=== PATIENT | female | born 2000 | race Caucasian/White ===

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

== ENCOUNTER 2022-10-24 12:03 | Outpatient (CLI) | payer BC ==
[2022-10-24] MEDS: LACTATED RINGERS 1,000 ML IV SCH ×2 (12:50→16:03)
[2022-10-24 13:09] VITALS: BP 109/51; PULSE 65; RESP 14; TEMP 97.3
--- NOTE | 2022-10-24 14:22 | US ---
EXAMINATION TYPE: US OB >= 14 wk fetus DATE OF EXAM: 10/24/2022 COMPARISON: None CLINICAL HISTORY: fallPatient fell TECHNIQUE: Transabdominal (TA) GESTATIONAL AGE / DATING Physician Established: (25 weeks/0 days) EDC: 02/06/2023 Dates by LMP: (25 weeks/0 days) EDC: 02/06/2023 Dates by First Scan: No previous this is first scan Dates by Current Scan: (25 weeks/3 days) EDC: 02/03/2023 SURVEY IUP: Single PLACENTA: Posterior PREVIA: No Previa ADEBAYO: 17 cm Normal CERVICAL LENGTH (transabdominal: norm > 3.0cm): 3.4 cm BIOMETRY PRESENTATION: Vertex LIE: Longitudinal BPD: 6.6 cm 26 weeks / 6 days HC: 22.61 cm 24 weeks / 4 days AC: 20.32 cm 24 weeks / 6 days FL: 4.92 cm 26 weeks / 4 days ESTIMATED WEIGHT IN GRAMS: grams ESTIMATED WEIGHT IN LBS/OZ: 1 lbs. 13 oz. WEIGHT PERCENTAGE BASED ON ESTABLISHED DATES: 67.3% HC/AC: 1.1 cm Normal FL/AC: 24.22 Normal HEART RATE: 143 bpm RHYTHM: Normal IMPRESSION: Single live intrauterine gestation with ultrasound age 25 weeks 3 days which is concordan t with dates by last menstrual period. Additional information as described above.
--- NOTE | 2022-10-24 16:58 | P.HPOB ---
History of Present Illness H&P Date: 10/24/22 Chief Complaint: 25-0/7 weeks, random decelerations after a fall the patient is a 22-year-old 1 para 0 admitted at 25-0/7 weeks as established by last menstrual period and confirmed by 19 week ultrasound. She called the office today after tripping coming out of her house and feels that she fell and landed only on palms and knees as both her scuffed and a little sore and did not have any direct abdominal trauma but she cannot be [place] certain. As a result, she was counseled to present to triage for monitoring of the fetus. She was placed on the monitor at which time she had at least 2 random relatively deep variable decelerations lasting for close to a minute and falling from approximately 150s to around 100. Aside from these decelerations, there was excellent variability for 25 week fetus and the patient denied any ongoing pain, cramping and no contractions were traced. She has no bleeding or any other vaginal concerns. Her has been entirely uncomplicated to this point. Given the random nature of having 3-5 decelerations as described above over the course of 3-4 hours of monitoring, the decision was made that the patient should have extended monitoring but in a tertiary care institution where delivery would be safer for the infant. Obstetrical history: 1 para 0 with current statistics listed in history of present illness. EDC of 02/06/2023 was established by last menstrual period and confirmed by 19 week ultrasound. Laboratory workup demonstrates a blood type of O+ with a negative antibody screen. Rubella status is immune. Remainder of the laboratory workup was within normal limits. Early 1 hour Glucola was normal. Second trimester Glucola has not yet been performed nor has group B strep undetermined. Gynecologic history: Unremarkable with no history of any infections to include STDs. Review of Systems review of systems is confined to history of present illness. Past Medical History Past Medical History: No Reported History History of Any Multi-Drug Resistant Organisms: None Reported Past Surgical History: No Surgical Hx Reported Smoking Status: Never smoker Medications and Allergies Allergies Allergy/AdvReac Type Severity Reaction Status Date / Time No Known Allergies Allergy Verified 09/13/17 18:01 Exam Vital Signs Temp Pulse Resp BP 10/24/22 13:02 97.3 F L 65 14 109/51 Intake and Output 10/24/22 10/24/2210/24/22 06:59 14:59 22:59 Other: Weight 89.358 kg in general, this is a well-developed, mild to moderately obese white female in no acute distress. Her heart has a regular rhythm and rate without murmur. Her lungs are clear to auscultation bilaterally in all ewing. Her abdomen is gravid, nondistended, has normal active bowel sounds, soft, nontender, and without any palpable masses aside from uterine fundus. Her extremities are without any cyanosis, clubbing, or edema and are nontender to palpation bilaterally. Digital cervical examination is deferred. Assessment and Plan (1) 25 weeks gestation of Current Visit: Yes Status: Acute Code(s): Z3A.25 - 25 WEEKS GESTATION OF SNOMED Code(s): 07156367 (2) Fall (on) (from) other stairs and steps, initial encounter Current Visit: Yes Status: Acute Code(s): W10.9XXA - FALL (ON) (FROM) UNSPECIFIED STAIRS AND STEPS, INIT ENCNTR SNOMED Code(s): 658702304 (3) Variable heart rate decelerations, antepartum Current Visit: Yes Status: Acute Code(s): O36.8390 - MATERN CARE FOR ABNLT FETL HRT RATE OR RHYM, UNSP TRI, UNSP SNOMED Code(s): 898763556 Plan: in the absence of the decelerations, the heart tracing would be category 1. The presence of the decelerations makes category 2. Given the random nature of the decelerations and the fact that they have been somewhat repetitive over the last 4 hours of monitoring, the decision was made that the patient needs to be observed for a longer period of time and that the safest place for that to take place is in a tertiary care institution. As a result, I have spoken with the attending physician at [facility] in [place] who has agreed to the transfer. They will make further decisions as regards the need for steroids and length of observation.
== END 2022-10-24 18:17 ==
LOC: FBPOP 12:03
PROVIDERS: ATTEND Obstetrics & Gynecology
DX: O36.8930 Maternal care for other specified fetal problems, third trimester, not applicable or unspecified (principal); Z3A.25 25 weeks gestation of pregnancy; W10.9XXA Fall (on) (from) unspecified stairs and steps, initial encounter; F17.200 Nicotine dependence, unspecified, uncomplicated
CPT/HCPCS: 76805; 96360; 96361; 99214

== ENCOUNTER → 2022-11-11 | Outpatient (CLI) | payer BC | END | disposition home or self-care (01) | LOC: LABWHC1 11:20 | PROVIDERS: ATTEND Obstetrics & Gynecology | DX: Z36.9 Encounter for antenatal screening, unspecified (principal) | CPT/HCPCS: 36415; 82950 ==

== ENCOUNTER 2023-01-31 18:49 | Inpatient (IN) | payer BC ==
[2023-01-31] MEDS ORDERED: LIDOCAINE 0.5% (PF) 5 MG/ML (50 ML SDV) SQ PRN (19:31)
[2023-01-31] MEDS ORDERED: miSOPROStoL 200 MCG TAB PO PRN (19:31)
[2023-01-31] MEDS ORDERED: OXYTOCIN 10 UNIT/ML 1 ML VIAL IM PRN (19:31)
[2023-01-31] MEDS ORDERED: METHYLERGONOVINE 0.2 MG/ML 1 ML AMP IM PRN (19:31)
[2023-01-31] MEDS ORDERED: TERBUTALINE 1 MG/ML VIAL SQ PRN (19:31)
[2023-01-31] MEDS ORDERED: TRANEXAMIC ACID IN NACL,ISO-OS 1,000 MG in EMPTY BAG 1 BAG IV PRN (19:31)
[2023-01-31] MEDS ORDERED: CARBOPROST TROMETHAMINE 250 MCG/ML 1 ML AMP IM PRN (19:31)
[2023-01-31] MEDS ORDERED: OXYTOCIN 30 UNITS/500 ML NS 30 UNIT in SALINE 1 500ML.BAG IV SCH ×2 (19:45→23:45)
[2023-01-31] MEDS: LACTATED RINGERS 1,000 ML IV SCH ×2 (19:45→22:56)
[2023-01-31 20:32] LABS: Basophils % (A) 1 %; Eosinophils # (A) 0.2 k/uL (0-0.7); Eosinophils % (A) 2 %; HCT 42.7 % (34.0-46.0); HGB 14.6 gm/dL (11.4-16.0); Lymphocytes # (A) 1.8 k/uL (1.0-4.8); Lymphocytes % (A) 23 %; MCH 30.9 pg (25.0-35.0); MCHC 34.3 g/dL (31.0-37.0); MCV 90.3 fL (80.0-100.0); Mean Platelet Volume 9.6; Monocytes # (A) 0.4 k/uL (0-1.0); Monocytes % (A) 5 %; Neutrophils # (A) 5.3 k/uL (1.3-7.7); Neutrophils % (A) 67 %; Platelet Count 144 k/uL (150-450); RBC 4.73 m/uL (3.80-5.40); RDW 13.2 % (11.5-15.5); WBC 7.9 k/uL (3.8-10.6)
[2023-01-31] MEDS ORDERED: BUTORPHANOL 1 MG/ML 1 ML VIAL IV PRN (20:54)
--- NOTE | 2023-01-31 20:59 | P.HPOB ---
History of Present Illness H&P Date: 01/31/23 Chief Complaint: 39 and one sevenths weeks, spontaneous rupture of membranes, labor the patient is a 22-year-old 1 para 0 admitted at 39 and one sevenths weeks as established by last menstrual period and confirmed by 19 week ultrasound. She is admitted in early active labor having had spontaneous rupture of membranes for clear fluid. On admission, all signs reassuring with a category 1 heart rate tracing. Her has been uncomplicated and group B strep status is negative. Obstetrical history: 1 para 0 with current statistics listed in history present illness. EDC of 02/06/2023 was established by last menstrual period and confirmed by 19 week ultrasound. Laboratory workup demonstrates a blood type of O+ with a negative antibody screen. Rubella status is immune. Remainder of the laboratory workups were within normal limits. Early Glucola and second trimester Glucola were both normal. Group E strep status is negativ e. Gynecologic history: Unremarkable with no history of any infections to include STDs. Review of Systems review of systems is confined to history of present illness. Past Medical History Past Medical History: No Reported History History of Any Multi-Drug Resistant Organisms: None Reported Past Surgical History: No Surgical Hx Reported Smoking Status: Former smoker Medications and Allergies Home Medications Medication Instructions Recorded Confirmed Type Vit No.179/Iron/Folic 1 each PO DAILY 01/31/23 01/31/23 History [ Tablet] Allergies Allergy/AdvReac Type Severity Reaction Status Date / Time No Known Allergies Allergy Verified 09/13/17 18:01 Exam Vital Signs Temp Pulse Resp BP Pulse Ox 01/31/23 19:14 98 F 72 16 133/72 99 Intake and Output 01/31/23 01/31/23 01/31/23 06:59 14:59 22:59 Other: Weight 104.326 kg in general, this is a well-developed well-nourished white female in discomfort as she is in labor. Her heart has a regular rhythm and rate without murmur. Her lungs are clear to auscultation bilaterally in all ewing. Her abdomen is gravid, nondistended, has normal active bowel sounds, is soft, nontender, and without any palpable masses aside from the uterine fundus. Her extremities are without any cyanosis, clubbing, or significant edema. Digital cervical examination at this time demonstrates her cervix to be 57 m dilated, 100% effaced, the vertex in presentation at -2 station. Spontaneous rupture of membranes has been confirmed. Fluid is clear. Results Result Diagrams: 01/31/23 19:33 Abnormal Lab Results - Last 24 Hours (Table) 01/31/23 Range/Units 19:33 Plt Count 144 L (150-450) k/uL Assessment and Plan (1) Spontaneous rupture of amniotic membranes Current Visit: Yes Status: Acute Code(s): FXX2125 - SNOMED Code(s): 516613773 (2) Active labor at term Current Visit: Yes Status: Acute Code(s): VKY3341 - SNOMED Code(s): 01207837 Plan: the patient is admitted for active management of labor. She will have close maternal and surveillance and expectant management will be practiced. She is a good candidate for either IV, epidural, or nitrous analgesia, whichever she may choose.
[2023-01-31] MEDS ORDERED: diphenhydrAMINE 50 MG CAP PO PRN (23:59)
[2023-01-31] MEDS ORDERED: ZOLPIDEM 5 MG TAB PO PRN (23:59)
[2023-01-31] MEDS ORDERED: BENZOCAINE/MENTHOL SPRAY 1 GM/SPRAY AEROSOL TOPICAL PRN (23:59)
[2023-01-31] MEDS ORDERED: HYDROcodone/APAP 7.5-325MG 1 EACH TAB PO PRN (23:59)
[2023-01-31] MEDS ORDERED: diphenhydrAMINE 25 MG CAP PO PRN (23:59)
[2023-01-31] MEDS ORDERED: diphenhydrAMINE 50 MG/ML 1 ML VIAL IVP PRN ×2 (23:59)
[2023-01-31] MEDS ORDERED: LANOLIN CREAM 5 GM TUBE TOPICAL PRN (23:59)
[2023-01-31] MEDS ORDERED: ACETAMINOPHEN TAB 325 MG TAB PO PRN (23:59)
[2023-01-31] MEDS ORDERED: HYDROCORTISONE 2.5% RECTAL CREAM 30 GM TUBE RECTAL PRN (23:59)
[2023-01-31] MEDS ORDERED: SIMETHICONE 80 MG CHEWABLE PO PRN (23:59)
[2023-01-31] MEDS ORDERED: HYDROcodone/APAP 5-325MG 1 EACH TAB PO PRN (23:59)
--- NOTE | 2023-02-01 00:03 | P.PROBDLV ---
Vaginal Delivery Note - . Vaginal Delivery Note: the patient is a 22-year-old 1 para 0 admitted at 39 and one sevenths weeks by good dating parameters perches admitted in early active labor with spontaneous rupture of membranes for clear fluid and all signs reassuring, category 1 heart rate tracing. Her has been entirely uncomplicated and group B strep status is negative. On labor and delivery, she was nanette regular and making steady progress on her own. She, in fact, progressed quickly through the active phase of labor to complete and +2 station. She pushed over the course of approximately 10-15 minutes to a normal spontaneous vaginal delivery of a viable 6 lbs. 10 oz. baby boy with Apgars of 8 at 1 minute and 9 at 5 minutes delivered in the right occiput anterior position. There was a tight nuchal cord 1 which was reduced following delivery of the . The placenta was delivered spontaneously, intact, and grossly normal with a grossly normal three-vessel cord inserted approximate 3 cm from margin of the placenta. There was a small first-degree midline perineal laceration repaired with a single [id number] stitch of 3-0 chromic catgut. Estimated blood loss for the case was approximately 250 mL. There were no complications. All sponge, instrument, needle counts were correct. Both mother and infant are resting comfortably in recovery.
[2023-02-01] MEDS: IBUPROFEN 600 MG TAB PO PRN ×2 (08:31→17:36)
[2023-02-01] MEDS: SENNOSIDES-DOCUSATE SODIUM 1 EACH TAB PO SCH ×2 (08:32→19:34)
--- NOTE | 2023-02-01 11:09 | P.PNOBGVD ---
Subjective - Subjective Patient reports: Reports appetite normal, Reports voiding normally, Reports pain well controlled, Reports ambulating normally : doing well Objective - Latest Vital Signs Latest vital signs: Vital Signs Temp Pulse Resp BP Pulse Ox 02/01/23 08:00 98.3 F 69 16 131/76 02/01/23 04:00 98.6 F 85 16 148/72 98 02/01/23 02:00 96.7 F L 81 16 130/58 97 02/01/23 01:30 87 16 129/60 98 02/01/23 01:00 87 16 128/62 100 02/01/23 00:45 91 16 136/80 100 02/01/23 00:30 97.1 F L 91 16 126/60 100 02/01/23 00:15 90 16 131/64 100 02/01/23 00:00 98.4 F 90 16 155/69 100 01/31/23 19:14 98 F 72 16 133/72 99 Intake and Output 01/31/23 02/01/23 02/01/23 22:59 06:59 14:59 Intake Total 211.533 Output Total 445 Balance -233.467 Intake: Intake, IV Titration 211.533 Amount Oxytocin 30 Units/500 ml 211.533 Ns 30 unit In Saline 1 500ml.bag @ Per Protocol IV .Q0M [facility] Rx#:[id number] Output: Estimated Blood Loss 250 Output, Quantitative 195 Blood Loss Other: # Voids 2 Weight 104.326 kg - Exam Extremities: Present: normal Abdomen: Present: normal appearance, soft Uterus: Present: normal, firm (uterine fundus is tonic and nontender around the umbilicus.) - Labs Labs: Abnormal Lab Results - Last 24 Hours (Table) 01/31/23 Range/Units 19:33 Plt Count 144 L (150-450) k/uL Assessment and Plan (1) Spontaneous rupture of amniotic membranes Current Visit: Yes Status: Acute Code(s): LVN5266 - SNOMED Code(s): 781236442 (2) Active labor at term Current Visit: Yes Status: Acute Code(s): HOJ1879 - SNOMED Code(s): 97840561 (3) Normal spontaneous vaginal delivery Current Visit: Yes Status: Acute Code(s): O80 - ENCOUNTER FOR FULL-TERM UNCOMPLICATED DELIVERY SNOMED Code(s): 22162511 Plan: continue routine care. I would anticipate discharge home tomorrow pending no complications.
--- NOTE | 2023-02-01 12:34 | P.MSEPDOC ---
Presenting Problems - Arrival Data Date of Arrival on Unit: 01/31/23 Time of Arrival on Unit: 18:49 Mode of Transport: Ambulatory - Complaint OB-Reason for Admission/Chief Complaint: Rule Out SROM Medical History - Information : 1 Para: 0 Term: 0 : 0 Abortions: Spontaneous or Elective: 0 Number of Living Children: 0 - Gestational Age Gestational Age by DIRK (wks/days): 39 Weeks and 1 Days - History Comment: Quit vaping about 2 months ago Review of Systems - Review of Systems Constitutional: No problems Breast: No problems ENT: No problems Cardiovascular: No problems Respiratory: No problems Gastrointestinal: No problems Genitourinary: No problems Musculoskeletal: No problems Neurological: No problems Skin: No problems Vital Signs - Temperature Temperature: 98.3 F Temperature Source: Oral - Pulse Pulse Oximetery Pulse Rate: 69 Pulse Assessment Method: Automatic Cuff - Respirations Respiratory Rate: 16 Oxygen Delivery Method: Room Air - Blood Pressure Right Arm Blood Pressure: 131/76 Blood Pressure Mean: 94 Blood Pressure Source: Automatic Cuff Medical Screen Scoring - Cervical Exam Dilation (cm): 4 Effacement (%): 90 Station: -1 Membranes: Ruptured - Assessment - Baby A Heart Rate - NICHD Category: Category I (Normal) NST: Reactive Physician Notification - Physician Notified Physician Notified Date: 01/31/23 Physician Notified Time: 19:20 Physician: Nelson Hansen Order Received: Yes (Admission) Maternal Triage Index - Non-Urgent/Priority 4 Non-Urgent Priority 4: Yes Criteria Met for Priority 4: SROM, labor, admission Disposition - Disposition OB Disposition: Admit I agree with the RN Medical Screening Exam: Yes Case reviewed; plan agreed upon as documented in EMR&OBIX.: Yes Diagnosis: ENCOUNTER FOR FULL-TERM UNCOMPLICATED DELIVERY
[2023-02-01] MEDS: LACTATED RINGERS 1,000 ML IV SCH ×2 (21:16→21:17)
[2023-02-02] MEDS: IBUPROFEN 600 MG TAB PO PRN ×2 (00:03→08:30)
[2023-02-02] MEDS: LACTATED RINGERS 1,000 ML IV SCH (04:15)
[2023-02-02 05:27] LABS: Basophils % (A) 0 %; Eosinophils # (A) 0.2 k/uL (0-0.7); Eosinophils % (A) 3 %; HCT 35.6 % (34.0-46.0); HGB 12.2 gm/dL (11.4-16.0); Lymphocytes # (A) 1.9 k/uL (1.0-4.8); Lymphocytes % (A) 30 %; MCHC 34.1 g/dL (31.0-37.0); MCV 90.7 fL (80.0-100.0); Mean Platelet Volume 8.5; Monocytes # (A) 0.3 k/uL (0-1.0); Monocytes % (A) 5 %; Neutrophils % (A) 61 %; Platelet Count 130 k/uL (150-450); RBC 3.92 m/uL (3.80-5.40); RDW 13.3 % (11.5-15.5); WBC 6.6 k/uL (3.8-10.6)
[2023-02-02 08:26] VITALS: BP 107/71; PULSE 76; RESP 14; TEMP 98.1
[2023-02-02] MEDS: SENNOSIDES-DOCUSATE SODIUM 1 EACH TAB PO SCH (08:30)
--- NOTE | 2023-02-02 11:07 | P.DS ---
Providers Date of admission: 01/31/23 19:33 Expected date of discharge: 02/02/23 Attending physician: Nelson Hansen Primary care physician: Stated None - Discharge Diagnosis(es) (1) Spontaneous rupture of amniotic membranes Current Visit: Yes Status: Acute (2) Active labor at term Current Visit: Yes Status: Acute (3) Normal spontaneous vaginal delivery Current Visit: Yes Status: Acute Hospital Course: the patient is a 22-year-old 1 para 0 admitted at 39 and one sevenths weeks by good dating parameters. She is admitted in early active labor with all signs reassuring. She had spontaneous rupture of membranes demonstrating clear fluid. On admission, all signs reassuring with a category 1 heart rate tracing. Her was uncomplicated and group B strep status is negative. On labor and delivery, she made fairly rapid progress through the active phase of labor to complete and then pushed to a normal spontaneous vaginal delivery of a viable 6 lbs. 10 oz. baby boy with Apgars of 8 at 1 minute and 9 at 5 minutes. Her course was unremarkable vital signs remained stable and her temperature was afebrile throughout. She was deemed stable for discharge on day #2 was discharged home to follow-up in the office in 6 weeks' time routinely. Discharge instructions included calling for any significantly increased bleeding or foul-smelling lochia, significantly increased fever abdominal pain, perineal complaints, breast complaints, or anything else that concerned her. She was additionally instructed to have nothing in the vagina for at least 6 weeks time to include intercourse. She understood her instructions and agrees to follow up as noted above. Discharge medications included continue vitamins as she has opted to breast-feed. She was otherwise to use [id number] analgesic pain medications as needed. Maternal blood type is O+ and rubella status is immune. Procedures: #1. Normal spontaneous vaginal delivery #2. Repair of first-degree perineal laceration Patient Condition at Discharge: Stable Plan - Discharge Summary New Discharge Prescriptions: No Action Vit No.179/Iron/Folic [ Tablet] 1 each PO DAILY Discharge Medication List Vit No.179/Iron/Folic [ Tablet] 1 each PO DAILY 01/31/23 [History] Follow up Appointment(s)/Referral(s): Nelson Hansen MD [STAFF PHYSICIAN] - 6 Weeks Discharge Disposition: HOME SELF-CARE
== END 2023-02-02 14:32 | disposition home or self-care (01) | DRG 807 ==
LOC: FBPOP 18:49 → 4FBP 19:33
PROVIDERS: ADMIT Obstetrics & Gynecology; ATTEND Obstetrics & Gynecology
PROC: 10E0XZZ Delivery of Products of Conception, External Approach (ICD-10-PCS; principal; 2023-02-01)
PROC: 0HQ9XZZ Repair Perineum Skin, External Approach (ICD-10-PCS; 2023-02-01)
DX: O42.92 Full-term premature rupture of membranes, unspecified as to length of time between rupture and onset of labor (principal); Z37.0 Single live birth; O69.1XX0 Labor and delivery complicated by cord around neck, with compression, not applicable or unspecified; O70.0 First degree perineal laceration during delivery; Z87.891 Personal history of nicotine dependence
CPT/HCPCS: 84112; 85025; 86850; 86900; 86901; 99215

== ENCOUNTER 2024-08-23 12:13 | Outpatient (CLI) | payer OTHER ==
[2024-08-23 13:06] VITALS: BP 118/66; PULSE 82; RESP 16; TEMP 97.1
--- NOTE | 2024-09-12 06:27 | P.MSEPDOC ---
Presenting Problems - Arrival Data Date of Arrival on Unit: 08/23/24 Time of Arrival on Unit: 12:13 Mode of Transport: Ambulatory - Complaint OB-Reason for Admission/Chief Complaint: Rule Out SROM Comment: Pt presents to triage with c/o SROM. Pt states it happened last night around 0000 in the shower. Medical History - Information : 2 Para: 1 Term: 1 : 0 Abortions: Spontaneous or Elective: 0 Number of Living Children: 1 - Gestational Age Gestational Age by DIRK (wks/days): 39 Weeks and 6 Days Review of Systems - Review of Systems Constitutional: No problems Breast: No problems ENT: No problems Cardiovascular: No problems Respiratory: No problems Gastrointestinal: No problems Genitourinary: No problems Musculoskeletal: No problems Neurological: No problems Skin: No problems Vital Signs - Temperature Temperature: 97.1 F Temperature Source: Temporal Artery Scan - Pulse Pulse Oximetery Pulse Rate: 82 Pulse Assessment Method: Pulse Oximetry - Respirations Respiratory Rate: 16 Oxygen Delivery Method: Room Air O2 Sat by Pulse Oximetry: 98 - Blood Pressure Right Arm Blood Pressure: 118/66 Blood Pressure Mean: 83 Blood Pressure Source: Automatic Cuff Medical Screen Scoring - Cervical Exam Dilation (cm): 3 Effacement (%): 60 Station: -2 Membranes: Intact - Assessment - Baby A Baseline FHR: 140 Heart Rate - NICHD Category: Category I (Normal) NST: Reactive Physician Notification - Physician Notified Physician Notified Date: 08/23/24 Physician Notified Time: 12:44 Physician: Nelson Hansen Order Received: Yes - Notification Comment Comment: Reported pt's amnisure negative, cervical exam of 3/60/-2, reactive NST, no contx. Orders received to discharge pt home. Maternal Triage Index - Maternal Triage Index Presenting for scheduled procedure w/no complaint: No - Stat/Priority 1 Stat Priority 1: No - Urgent/Priority 2 Urgent Priority 2: No - Prompt/Priority 3 Prompt Priority 3: No - Non-Urgent/Priority 4 Non-Urgent Priority 4: Yes Criteria Met for Priority 4: c/o SROM/leaking Disposition - Disposition OB Disposition: Discharge to home, Written follow up instructions reviewed Discharge Date: 08/23/24 Discharge Time: 12:50 I agree with the RN Medical Screening Exam: Yes Physician's MSE Comment: I have neither seen nor examined the patient. Case reviewed; plan agreed upon as documented in EMR&OBIX.: Yes Diagnosis: RELATED CONDITIONS, UNSPECIFIED, THIRD TRIMESTER
== END 2024-08-23 12:50 | disposition home or self-care (01) ==
LOC: FBPOP 12:13
PROVIDERS: ATTEND Obstetrics & Gynecology
DX: O47.1 False labor at or after 37 completed weeks of gestation (principal); O99.333 Smoking (tobacco) complicating pregnancy, third trimester; F17.200 Nicotine dependence, unspecified, uncomplicated; Z3A.39 39 weeks gestation of pregnancy
CPT/HCPCS: 59025; 84112; G0463; 99213

== ENCOUNTER 2024-08-25 14:39 | Inpatient (IN) | payer OTHER ==
[2024-08-25] MEDS ORDERED: METHYLERGONOVINE 0.2 MG/ML 1 ML AMP IM PRN (15:00)
[2024-08-25] MEDS ORDERED: TRANEXAMIC 1,000 MG/100ML-NACL 1,000 MG in EMPTY BAG 1 BAG IV PRN (15:00)
[2024-08-25] MEDS ORDERED: miSOPROStoL 200 MCG TAB PO PRN (15:00)
[2024-08-25] MEDS ORDERED: OXYTOCIN 10 UNIT/ML 1 ML VIAL IM PRN (15:00)
[2024-08-25] MEDS ORDERED: TERBUTALINE 1 MG/ML VIAL SQ PRN (15:00)
[2024-08-25] MEDS ORDERED: CARBOPROST TROMETHAMINE 250 MCG/ML 1 ML AMP IM PRN (15:00)
[2024-08-25] MEDS ORDERED: miSOPROStoL 200 MCG TAB RECTAL PRN (15:00)
[2024-08-25] MEDS: LACTATED RINGERS 1,000 ML IV SCH (15:30)
[2024-08-25 15:41] LABS: Basophils % (A) 0 %; Eosinophils # (A) 0.1 k/uL (0-0.7); Eosinophils % (A) 1 %; HCT 40.3 % (34.0-46.0); HGB 13.7 gm/dL (11.4-16.0); Lymphocytes # (A) 1.5 k/uL (1.0-4.8); Lymphocytes % (A) 19 %; MCH 29.8 pg (25.0-35.0); MCHC 34.1 g/dL (31.0-37.0); MCV 87.6 fL (80.0-100.0); Mean Platelet Volume 9.6; Monocytes # (A) 0.3 k/uL (0-1.0); Monocytes % (A) 4 %; Neutrophils # (A) 5.8 k/uL (1.3-7.7); Neutrophils % (A) 75 %; Platelet Count 150 k/uL (150-450); RDW 13.4 % (11.5-15.5); WBC 7.7 k/uL (3.8-10.6)
[2024-08-25] MEDS: BUTORPHANOL 1 MG/ML 1 ML VIAL IV PRN (15:46)
--- NOTE | 2024-08-25 17:06 | P.HPOB ---
History of Present Illness H&P Date: 08/25/24 Chief Complaint: 40 and 1 sevenths weeks, active labor The patient is a 24-year-old 2 para 1-0-0-1 admitted at 40 and 1 sevenths weeks as established by 7-week ultrasound. She is admitted in active labor at 6 to 7 cm of dilation. Her has been uncomplicated and group B strep status is negative. On labor and delivery, all signs are reassuring with a category 1 heart rate tracing. Obstetrical history: 2 para 1-0-0-1 with 1 term vaginal delivery without complications. Current statistics are listed in history of present illness. EDC of 08/24/2024 was established by a 7-week ultrasound. Laboratory workup demonstrates a blood type of O+ with a negative antibody screen. Rubella status is immune. The remainder of the laboratory workup was within normal limits. trisomy testing was negative. 1 hour Glucola was normal and group B strep status is negative. Gynecologic history: Unremarkable with no history of any infections to include STDs. Review of Systems Review of systems is confined to history of present illness. Past Medical History Past Medical History: No Reported History History of Any Multi-Drug Resistant Organisms: None Reported Past Surgical History: No Surgical Hx Reported Past Anesthesia/Blood Transfusion Reactions: No Reported Reaction Past Psychological History: Anxiety Smoking Status: Former smoker Past Alcohol Use History: None Reported Past Drug Use History: None Reported - Past Family History Father Family Medical History: Diabetes Mellitus, Hypertension Medications and Allergies Home Medications Medication Instructions Recorded Confirmed Type Vit No.179/Iron/Folic 1 each PO DAILY 01/31/23 08/23/24 History [ Tablet] Aspirin [Adult Low Dose Aspirin EC] 81 mg PO DAILY 08/23/24 08/25/24 History Omeprazole [PriLOSEC] 10 mg PO DAILY 08/23/24 08/25/24 History Allergies Allergy/AdvReac Type Severity Reaction Status Date / Time No Known Allergies Allergy Verified 08/25/24 14:50 Exam Vital Signs Temp Pulse Resp BP Pulse Ox 08/25/24 16:12 97.4 F L 87 17 130/74 97 08/25/24 15:25 97.4 F L 87 17 130/74 97 Intake and Output 08/25/24 08/25/24 08/25/24 06:59 14:59 22:59 Other: Weight 98.883 kg 98.883 kg In general, this is a well-developed, well-nourished white female in no acute distress. Her heart has a regular rhythm and rate without murmur. Her lungs clear to auscultation bilaterally in all ewing. Her abdomen is gravid, nondistended, has normal active bowel sounds, soft, nontender, and without any palpable masses aside from the uterine fundus. Her extremities are without any cyanosis, clubbing, or edema and are nontender to palpation bilaterally. Digital cervical examination on my exam demonstrates her cervix to be anterior lip dilated, 90% effaced, with the vertex and presentation at -2-3 station with a bulging bag of water. Artificial rupture of membranes is carried out with this fluid being slowly let out and demonstrating clear fluid. head distended to -2 station. Results Result Diagrams: 08/25/24 15:26 Assessment and Plan (1) Active labor at term Current Visit: Yes Status: Acute Code(s): [id number] - SNOMED Code(s): 48436241 Plan: The patient has been admitted for active management of labor and anticipated normal vaginal delivery. She will have close maternal and surveillance and expectant management will be practiced. She has declined any intervention for analgesia at this time.
[2024-08-25] MEDS: OXYTOCIN 30 UNITS/500 ML NS 30 UNIT in SALINE 1 500ML.BAG IV SCH (17:58)
[2024-08-25] MEDS ORDERED: HYDROCORTISONE 2.5% RECTAL CREAM 30 GM TUBE RECTAL PRN (18:15)
[2024-08-25] MEDS ORDERED: diphenhydrAMINE 50 MG CAP PO PRN (18:15)
[2024-08-25] MEDS ORDERED: LANOLIN CREAM 1 GM TUBE TOPICAL PRN (18:15)
[2024-08-25] MEDS ORDERED: ZOLPIDEM 5 MG TAB PO PRN (18:15)
[2024-08-25] MEDS ORDERED: diphenhydrAMINE 50 MG/ML 1 ML VIAL IVP PRN ×2 (18:15)
[2024-08-25] MEDS ORDERED: diphenhydrAMINE 25 MG CAP PO PRN (18:15)
--- NOTE | 2024-08-25 18:19 | P.PROBDLV ---
Vaginal Delivery Note - . Vaginal Delivery Note: The patient is a 24-year-old 2 para 1-0-0-1 admitted at 40 and 1 sevenths weeks by good dating parameters. She is admitted in active labor with all signs reassuring, category 1 heart rate tracing. Her was entirely uncomplicated and group B strep status is negative. On labor and delivery, she labor to approximately anterior lip dilation with 90% effacement on the vertex and presentation at -2-3 station. She underwent artificial rupture of membranes with a moderate to significant amount of clear fluid mixed with bloody show. She labor down over the course of the next 30 minutes or so and ultimately became complete and began to push from approximately 0 to -1 station. She pushed over the course of approximately 10 to 15 minutes to a normal spontaneous vaginal delivery of a viable 8 pound 10.8 ounce baby boy with Apgars of 9 at 1 minute and 9 at 5 minutes delivered in the left occiput anterior position. There was a nuchal cord x 1 which was reduced following delivery of the . cord blood was collected per protocol. The placenta was delivered spontaneously, intact, and grossly normal with a grossly normal three-vessel cord inserted approximately 1 to 2 cm from the margin of the placental disc. There was a small to average sized second-degree midline perineal laceration noted which was repaired in standard fashion using 3-0 chromic catgut without difficulty. Estimated blood loss for the case was approximate 150 mL. There were no complications. All sponge, instrument, and needle counts were correct. Both mother and are resting comfortably in recovery.
[2024-08-25] MEDS: IBUPROFEN 800 MG TAB PO PRN (18:40)
[2024-08-25] MEDS: LIDOCAINE 0.5% (PF) 5 MG/ML (50 ML SDV) SQ PRN (18:54)
[2024-08-25] MEDS: BENZOCAINE/MENTHOL SPRAY 1 GM/SPRAY AEROSOL TOPICAL PRN (18:57)
[2024-08-25] MEDS: SENNOSIDES-DOCUSATE SODIUM 1 EACH TAB PO SCH (23:34)
[2024-08-26] MEDS: ACETAMINOPHEN TAB 500 MG TAB PO PRN (00:58)
[2024-08-26 07:07] LABS: Basophils % (A) 0 %; Eosinophils # (A) 0.1 k/uL (0-0.7); Eosinophils % (A) 2 %; HCT 36.1 % (34.0-46.0); HGB 12.1 gm/dL (11.4-16.0); Lymphocytes # (A) 1.8 k/uL (1.0-4.8); Lymphocytes % (A) 22 %; MCH 29.8 pg (25.0-35.0); MCHC 33.4 g/dL (31.0-37.0); MCV 89.2 fL (80.0-100.0); Mean Platelet Volume 9.3; Monocytes # (A) 0.4 k/uL (0-1.0); Monocytes % (A) 5 %; Neutrophils # (A) 5.7 k/uL (1.3-7.7); Neutrophils % (A) 69 %; Platelet Count 136 k/uL (150-450); RBC 4.05 m/uL (3.80-5.40); RDW 13.7 % (11.5-15.5); WBC 8.2 k/uL (3.8-10.6)
--- NOTE | 2024-08-26 08:39 | P.DS ---
Providers Date of admission: 08/25/24 15:11 Expected date of discharge: 08/26/24 Attending physician: Nelson Hansen Primary care physician: Stated None - Discharge Diagnosis(es) (1) Active labor at term Current Visit: Yes Status: Acute (2) Normal spontaneous vaginal delivery Current Visit: Yes Status: Acute Hospital Course: The patient is a 24-year-old 2 para 1-0-0-1 admitted at 40 and 1 sevenths weeks by good dating parameters. She is admitted in active labor with all signs reassuring, category 1 heart rate tracing. Group B strep status is negative. On labor and delivery, she progressed to anterior lip at which time she underwent artificial rupture of membranes for clear fluid. She progressed thereafter to complete and pushed to a normal spontaneous vaginal delivery of a viable 8 pound 11 ounce baby boy with Apgars of 9 at 1 minute and 9 at 5 minutes. Her course was unremarkable with vital signs remaining stable and her temperature was afebrile throughout. She was deemed stable for discharge on day #1 and was discharged home to follow-up in the office in 6 weeks time routinely. Discharge instructions included calling for any significantly increased bleeding or foul-smelling lochia, significantly increased fever abdominal pain, perineal complaints, breast complaints, or anything else that concerned her. She was additionally instructed to have nothing in the vagina for at least 6 weeks time to include intercourse. She understood her instructions and agrees to follow-up as noted above. Discharge medications included continued vitamins as she has opted to breast-feed. She was otherwise to use [id number] analgesic pain medications as needed. Paternal blood type is O+ and rubella status is immune. Procedures: #1. Artificial rupture of membranes #2. Normal spontaneous vaginal delivery #3. Repair of perineal laceration Patient Condition at Discharge: Stable Plan - Discharge Summary New Discharge Prescriptions: No Action Omeprazole [PriLOSEC] 10 mg PO DAILY Vit No.179/Iron/Folic [ Tablet] 1 each PO DAILY Aspirin [Adult Low Dose Aspirin EC] 81 mg PO DAILY Discharge Medication List Vit No.179/Iron/Folic [ Tablet] 1 each PO DAILY 01/31/23 [History] Aspirin [Adult Low Dose Aspirin EC] 81 mg PO DAILY 08/23/24 [History] Omeprazole [PriLOSEC] 10 mg PO DAILY 08/23/24 [History] Follow up Appointment(s)/Referral(s): Nelson Hansen MD [STAFF PHYSICIAN] - 6 Weeks Discharge Disposition: HOME SELF-CARE
[2024-08-26] MEDS: SIMETHICONE 80 MG CHEWABLE PO PRN (18:46)
[2024-08-27 00:21] VITALS: RESP 16; TEMP 97.8
[2024-08-27 08:30] VITALS: BP 87/51; PULSE 65
== END 2024-08-27 12:30 | disposition home or self-care (01) | DRG 560 ==
LOC: FBPOP 14:39 → 4FBP 15:11
PROVIDERS: ADMIT Obstetrics & Gynecology; ATTEND Obstetrics & Gynecology
PROC: 10E0XZZ Delivery of Products of Conception, External Approach (ICD-10-PCS; principal; 2024-08-25)
PROC: 10907ZC Drainage of Amniotic Fluid, Therapeutic from Products of Conception, Via Natural or Artificial Opening (ICD-10-PCS; 2024-08-25)
PROC: 0KQM0ZZ Repair Perineum Muscle, Open Approach (ICD-10-PCS; 2024-08-25)
DX: O48.0 Post-term pregnancy (principal); Z37.0 Single live birth; O70.1 Second degree perineal laceration during delivery; Z79.82 Long term (current) use of aspirin; Z87.891 Personal history of nicotine dependence
CPT/HCPCS: 59025; 85025; 86850; 86900; 86901; 99213

== ENCOUNTER 2024-09-07 22:29 | Emergency (ER) | payer OTHER ==
[2024-09-07 23:09] LABS: Basophils # (A) 0.1 k/uL (0-0.2); Basophils % (A) 1 %; Eosinophils # (A) 0.2 k/uL (0-0.7); Eosinophils % (A) 3 %; HCT 44.2 % (34.0-46.0); HGB 14.5 gm/dL (11.4-16.0); Lymphocytes # (A) 1.5 k/uL (1.0-4.8); Lymphocytes % (A) 21 %; MCHC 32.8 g/dL (31.0-37.0); MCV 88.5 fL (80.0-100.0); Mean Platelet Volume 7.9; Monocytes # (A) 0.3 k/uL (0-1.0); Monocytes % (A) 4 %; Neutrophils # (A) 4.7 k/uL (1.3-7.7); Neutrophils % (A) 70 %; Platelet Count 218 k/uL (150-450); RBC 4.99 m/uL (3.80-5.40); RDW 13.1 % (11.5-15.5); WBC 6.8 k/uL (3.8-10.6)
[2024-09-07 23:19] LABS: Partial Thromboplastin Time 26.9 sec (22.0-30.0); Prothrombin Time 10.6 sec (10.0-12.5)
[2024-09-07 23:30] LABS: ALT 366 U/L (4-34); AST 333 U/L (14-36); African American GFR (CKD) >90 (>60 ml/min/1.73 sqM); Albumin 4.3 g/dL (3.5-5.0); Alkaline Phosphatase 265 U/L (38-126); Amylase 44 U/L (30-110); Anion Gap 7 mmol/L; Blood Urea Nitrogen 10 mg/dL (7-17); Carbon Dioxide 25 mmol/L (22-30); Chloride 106 mmol/L (98-107); Glucose 101 mg/dL (74-99); Lipase 83 U/L (23-300); Non-African American GFR(CKD) >90 (>60 ml/min/1.73 sqM); Potassium 3.5 mmol/L (3.5-5.1); Sodium 138 mmol/L (137-145); Total Bilirubin 1.4 mg/dL (0.2-1.3); Total Protein 6.8 g/dL (6.3-8.2)
--- NOTE | 2024-09-07 23:45 | ED ---
General Adult HPI - General Chief complaint: Abdominal Pain Stated complaint: abd pain, vomitting Time Seen by Provider: 09/07/24 22:37 Source: patient, RN notes reviewed, old records reviewed Mode of arrival: ambulatory Limitations: no limitations - History of Present Illness Initial comments: 24-year-old female presenting for upper abdominal pain and epigastric pain. Patient does state that the pain travels to both sides but seems to be predominantly on the right. This is associated with vomiting. Pain has been intermittent but seems to be more persistent now. Patient is 12 days vaginal delivery. She was seen by her primary care today who was concerned for gallbladder pathology and had ordered ultrasound of the gallbladder. No fever. Pain is improved currently. - Related Data Home Medications Medication Instructions Recorded Confirmed Vit No.179/Iron/Folic 1 each PO DAILY 01/31/23 08/23/24 [ Tablet] Aspirin [Adult Low Dose Aspirin EC] 81 mg PO DAILY 08/23/24 08/25/24 Omeprazole [PriLOSEC] 10 mg PO DAILY 08/23/24 08/25/24 Allergies Allergy/AdvReac Type Severity Reaction Status Date / Time No Known Allergies Allergy Verified 09/07/24 22:33 Review of Systems ROS Statement: Those systems with pertinent positive or pertinent negative responses have been documented in the HPI. ROS Other: All systems not noted in ROS Statement are negative. Past Medical History Past Medical History: No Reported History History of Any Multi-Drug Resistant Organisms: None Reported Past Surgical History: No Surgical Hx Reported Past Anesthesia/Blood Transfusion Reactions: No Reported Reaction Past Psychological History: Anxiety Smoking Status: Former smoker Past Alcohol Use History: None Reported Past Drug Use History: None Reported - Past Family History Father Family Medical History: Diabetes Mellitus, Hypertension General Exam Limitations: no limitations General appearance: alert, in no apparent distress Head exam: Present: atraumatic, normocephalic Eye exam: Present: normal appearance, PERRL ENT exam: Present: normal exam Neck exam: Present: normal inspection. Absent: tenderness, meningismus Respiratory exam: Present: normal lung sounds bilaterally. Absent: respiratory distress, wheezes Cardiovascular Exam: Present: regular rate. Absent: normal rhythm GI/Abdominal exam: Present: soft, tenderness (Mild epigastric and right upper quadrant). Absent: distended, guarding, rebound Neurological exam: Present: alert, oriented X3, CN II-XII intact. Absent: motor sensory deficit Psychiatric exam: Present: normal affect, normal mood Skin exam: Present: warm, dry, intact. Absent: cyanosis, diaphoretic Course Vital Signs 09/07/24 09/08/24 22:30 01:11 Temperature 97.7 F 97.6 F Pulse Rate 64 58 L Respiratory 18 14 Rate Blood Pressure 128/86 111/66 O2 Sat by Pulse 98 99 Oximetry - Reevaluation(s) Reevaluation #1: 09/08/24 01:29 Patient reevaluated, resting comfortably, has not required any pain medication and has had no vomiting. Medical Decision Making - Medical Decision Making Was pt. sent in by a medical professional or institution (, PA, MANAGER CAMP, urgent care, hospital, or retirement...) When possible be specific @ -No Did you speak to anyone other than the patient for history (EMS, parent, family, police, friend...)? What history was obtained from this source @ -No Did you review nursing and triage notes (agree or disagree)? Why? @ -I reviewed and agree with nursing and triage notes Were old charts reviewed (outside hosp., previous admission, EMS record, old EKG, old radiological studies, urgent care reports/EKG's, retirement records)? Report findings @ -No old charts were reviewed Differential Abdominal Pain Women: Appendicitis, Cholecystitis, diverticulosis, ischemic bowel, pancreatitis, hepatitis, UTI, gastroenteritis, AAA, incarcerated hernia, bowel obstruction, co nstipation, inflammatory bowel, hepatitis, peptic ulcer disease, splenic infarction, perforated viscus, vulvitis, ovarian torsion, PID, kidney stone, placenta abruption, this is not meant to be an all-inclusive list EKG interpreted by me (3pts min.). @ -As above X-rays interpreted by me (1pt min.). @ -None done CT interpreted by me (1pt min.). @ -None done U/S interpreted by me (1pt. min.). @ -[Ultrasound of the gallbladder showing cholelithiasis with out gallbladder wall thickening or pericholecystic fluid, CBD is normal What testing was considered but not performed or refused? (CT, X-rays, U/S, labs)? Why? @ -None What meds were considered but not given or refused? Why? @ -None Did you discuss the management of the patient with other professionals (professionals i.e. DrNoel, PA, MANAGER [employer], lab, RT, psych nurse, social work job titles, food safety auditor, teacher, evp and chief operating officer, caser shoe parts)? Give summary @ -[Case discussed with Dr. Isaiah pizano for general surgery. At this time felt that observation on an outpatient basis with strict return parameters is appropriate. If patient's pain is to return or she develops fever or worsening nausea vomiting she will return to the emergency department for reevaluation if her symptoms are mild she will follow with general surgery as an outpatient. Was smoking cessation discussed for >3mins.? @ -No Was critical care preformed (if so, how long)? @ -No Were there social determinants of health that impacted care today? How? (Homelessness, low income, unemployed, alcoholism, drug addiction, transportation, low edu. Level, literacy, decrease access to med. care, care home, rehab)? @ -No Was there de-escalation of care discussed even if they declined (Discuss DNR or withdrawal of care, Hospice)? DNR status @ -No What co-morbidities impacted this encounter? (DM, HTN, Smoking, COPD, CAD, Cancer, CVA, ARF, Chemo, Hep., AIDS, mental health diagnosis, sleep apnea, morbid obesity)? @ -None Was patient admitted / discharged? Hospital course, mention meds given and route, prescriptions, significant lab abnormalities, going to OR and other pertinent info. @ -24-year-old female with abdominal pain vomiting. This has been an ongoing issue for many months but has seemed to worsen. Patient is 12 days status post vaginal delivery without complication. She has no chest pain. No lower extremity edema. Blood pressure is normal. No headache. She has minimal abdominal pain on exam. Normal white blood cell count, stable hemoglobin, normal electrolytes. She has bilirubin of 1.4 and elevated AST, ALT and alkaline phosphatase. Ultrasound shows cholelithiasis without secondary signs of acute cholecystitis. Case is discussed with general surgery at this time felt that patient will be able to monitor symptoms as an outpatient and stable for discharge at this time. Strict return parameters are discussed at length with the patient and her father. Undiagnosed new problem with uncertain prognosis? @ -No Drug Therapy requiring intensive monitoring for toxicity (Heparin, Nitro, Insulin, Cardizem)? @ -No Were any procedures done? @ -No Diagnosis/symptom? @Abdominal pain-resolved, gallstones Acute, or Chronic, or Acute on Chronic? @ -Acute Uncomplicated (without systemic symptoms) or Complicated (systemic symptoms)? @ -Default Side effects of treatment? @ -No Exacerbation, Progression, or Severe Exacerbation? @ -No Poses a threat to life or bodily function? How? (Chest pain, [place], [place], pneumonia, PE, COPD, DKA, ARF, appy, cholecystitis, CVA, Diverticulitis, Homicidal, Suicidal, threat to staff... and all critical care pts) @ -Low risk - Lab Data Result diagrams: 09/07/24 22:50 09/07/24 22:53 Lab Results 09/07/24 09/07/24 09/07/24 Range/Units 01:00 22:50 22:53 WBC 6.8 (3.8-10.6) k/uL RBC 4.99 (3.80-5.40) m/uL Hgb 14.5 (11.4-16.0) gm/dL Hct 44.2 (34.0-46.0) % MCV 88.5 (80.0-100.0) fL MCH 29.0 (25.0-35.0) pg MCHC 32.8 (31.0-37.0) g/dL RDW 13.1 (11.5-15.5) % Plt Count 218 (150-450) k/uL MPV 7.9 Neutrophils % 70 % Lymphocytes % 21 % Monocytes % 4 % Eosinophils % 3 % Basophils % 1 % Neutrophils # 4.7 (1.3-7.7) k/uL Lymphocytes # 1.5 (1.0-4.8) k/uL Monocytes # 0.3 (0-1.0) k/uL Eosinophils # 0.2 (0-0.7) k/uL Basophils # 0.1 (0-0.2) k/uL PT (10.0-12.5) sec INR (<1.2) APTT (22.0-30.0) sec Sodium 138 (137-145) mmol/L Potassium 3.5 (3.5-5.1) mmol/L Chloride 106 (98-107) mmol/L Carbon Dioxide 25 (22-30) mmol/L Anion Gap 7 mmol/L BUN 10 (7-17) mg/dL Creatinine 0.75 (0.52-1.04) mg/dL Est GFR (CKD-EPI)AfAm >90 (>60 ml/min/1.73 sqM) Est GFR (CKD-EPI)NonAf >90 (>60 ml/min/1.73 sqM) Glucose 101 H (74-99) mg/dL Calcium 9.0 (8.4-10.2) mg/dL Total Bilirubin 1.4 H (0.2-1.3) mg/dL AST 333 H (14-36) U/L ALT 366 H (4-34) U/L Alkaline Phosphatase 265 H (38-126) U/L Total Protein 6.8 (6.3-8.2) g/dL Albumin 4.3 (3.5-5.0) g/dL Amylase 44 (30-110) U/L Lipase 83 (23-300) U/L Urine Color Dark Yellow Urine Appearance Clear (Clear) Urine pH 6.0 (5.0-8.0) Ur Specific [place] 1.036 H (1.001-1.035) Urine Protein 1+ H (Negative) Urine Glucose (UA) Negative (Negative) Urine Ketones Negative (Negative) Urine Blood Negative (Negative) Urine Nitrite Negative (Negative) Urine Bilirubin 1+ H (Negative) Urine Urobilinogen 4.0 (<2.0) mg/dL Ur Leukocyte Esterase Trace H (Negative) Urine RBC 1 (0-5) /hpf Urine WBC 13 H (0-5) /hpf Ur Squamous Epith Cells 1 (0-4) /hpf Calcium Oxalate Crystal Few H (None) /hpf Amorphous Sediment Rare H (None) /hpf Hyaline Casts 7 H (0-2) /lpf Urine Mucus Many H (None) /hpf 11/12/24 Range/Units 22:53 WBC (3.8-10.6) k/uL RBC (3.80-5.40) m/uL Hgb (11.4-16.0) gm/dL Hct (34.0-46.0) % MCV (80.0-100.0) fL MCH (25.0-35.0) pg MCHC (31.0-37.0) g/dL RDW (11.5-15.5) % Plt Count (150-450) k/uL MPV Neutrophils % % Lymphocytes % % Monocytes % % Eosinophils % % Basophils % % Neutrophils # (1.3-7.7) k/uL Lymphocytes # (1.0-4.8) k/uL Monocytes # (0-1.0) k/uL Eosinophils # (0-0.7) k/uL Basophils # (0-0.2) k/uL PT 10.6 (10.0-12.5) sec INR 1.0 (<1.2) APTT 26.9 (22.0-30.0) sec Sodium (137-145) mmol/L Potassium (3.5-5.1) mmol/L Chloride (98-107) mmol/L Carbon Dioxide (22-30) mmol/L Anion Gap mmol/L BUN (7-17) mg/dL Creatinine (0.52-1.04) mg/dL Est GFR (CKD-EPI)AfAm (>60 ml/min/1.73 sqM) Est GFR (CKD-EPI)NonAf (>60 ml/min/1.73 sqM) Glucose (74-99) mg/dL Calcium (8.4-10.2) mg/dL Total Bilirubin (0.2-1.3) mg/dL AST (14-36) U/L ALT (4-34) U/L Alkaline Phosphatase (38-126) U/L Total Protein (6.3-8.2) g/dL Albumin (3.5-5.0) g/dL Amylase (30-110) U/L Lipase (23-300) U/L Urine Color Urine Appearance (Clear) Urine pH (5.0-8.0) Ur Specific [place] (1.001-1.035) Urine Protein (Negative) Urine Glucose (UA) (Negative) Urine Ketones (Negative) Urine Blood (Negative) Urine Nitrite (Negative) Urine Bilirubin (Negative) Urine Urobilinogen (<2.0) mg/dL Ur Leukocyte Esterase (Negative) Urine RBC (0-5) /hpf Urine WBC (0-5) /hpf Ur Squamous Epith Cells (0-4) /hpf Calcium Oxalate Crystal (None) /hpf Amorphous Sediment (None) /hpf Hyaline Casts (0-2) /lpf Urine Mucus (None) /hpf Disposition Clinical Impression: Gall stones, Abdominal pain Disposition: HOME SELF-CARE Condition: Fair Instructions (If sedation given, give patient instructions): Biliary Colic (ED), Gallstones (ED), Low Fat Diet (ED) Is patient prescribed a controlled substance at d/c from ED?: No Referrals: Hans Arevalo Jr, DO [Primary Care Provider] - 1-2 days Donna Colon DO [Doctor of Osteopathic Medicine] - 1-2 days Time of Disposition: 01:28
[2024-09-07] MEDS: SODIUM CHLORIDE 0.9% 1,000 ML IV SCH (23:58)
[2024-09-08] MEDS: SODIUM CHLORIDE 0.9% 500 ML 500 ML IV ONE
--- NOTE | 2024-09-08 00:47 | US ---
EXAM: US Abdomen Limited, Right Upper Quadrant CLINICAL HISTORY: Female, 24 years old with history of abdominal pain; Patient states abdominal pain since baby in May. Nausea. TECHNIQUE: Grayscale and color Doppler imaging of the right upper quadrant was performed. 68 images COMPARISON: No relevant prior studies available. FINDINGS: Liver: Liver Length measures about 16.6 cm longitudinally. No intrahepatic bile duct dilation. Gallbladder: Gallbladder Wall measures about 0.1 cm in thickness. Multiple small stones in the gallbladder. No sonographic Andrews's sign. Common bile duct: CBD measures about 0.5 cm in maximal diameter. No stones. No dilation. Pancreas: Unremarkable as visualized. Right kidney: Right Kidney measures about 10.5 x 4.4 x 6.8 cm. No stones. No hydronephrosis. IMPRESSION: . Cholelithiasis.
[2024-09-08 00:54] LABS: Amorphous Sediment,Urine Rare /hpf; Appearance,Urine Clear (Clear); Bilirubin,Urine 1+ (Negative); Blood,Urine Negative (Negative); Calcium Oxalate Crystals,Urine Few /hpf; Color,Urine Dark Yellow; Glucose,Urine (UA) Negative (Negative); Hyaline Casts,Urine 7 /lpf (0-2); Ketones,Urine Negative (Negative); Leukocyte Esterase,Urine Trace (Negative); Mucus,Urine Many /hpf; Nitrite,Urine Negative (Negative); Protein,Urine 1+ (Negative); RBC,Urine 1 /hpf (0-5); Specific Gravity,Urine 1.036 (1.001-1.035); Squamous Epithelial Cell,Urine 1 /hpf (0-4); WBC,Urine 13 /hpf (0-5)
[2024-09-08 01:12] VITALS: BP 111/66; PULSE 58; RESP 14; TEMP 97.6
== END 2024-09-08 01:39 | disposition home or self-care (01) ==
LOC: EC 22:29
DX: K80.20 Calculus of gallbladder without cholecystitis without obstruction (principal); Z87.891 Personal history of nicotine dependence
CPT/HCPCS: 36415; 76705; 80053; 81001; 82150; 83690; 85025; 85610; 85730; 96360; 99284

== ENCOUNTER 2024-09-08 14:30 | Observation (INO) | payer OTHER ==
--- NOTE | 2024-09-08 15:13 | ED ---
Abdominal Pain HPI - General Source: patient, RN notes reviewed, old records reviewed Mode of arrival: ambulatory Limitations: no limitations <Amna Baker - Last Filed: 09/08/24 15:54> - General Source: patient, RN notes reviewed <Yareli Blanc - Last Filed: 09/08/24 18:44> - General Chief Complaint: Abdominal Pain Stated Complaint: Abd pain Time Seen by Provider: 09/08/24 15:09 - History of Present Illness Initial Comments: 24-year-old female presenting to the ER with a chief complaint of abdominal pain. Patient was seen here yesterday for similar complaint and diagnosed with cholelithiasis. Patient was discharged with outpatient management. Patient states she was discharged pain-free. Today she attempted to eat plain toast when pain returned. She endorses nausea but denies vomiting. She has not taken anything for symptoms at this time. Patient denies any fevers, chills, constipation/diarrhea, urinary complaints, chest pain or shortness of breath. (Amna Baker) - Related Data Home Medications Medication Instructions Recorded Confirmed Omeprazole [PriLOSEC] 20 mg PO DAILY 09/08/24 09/08/24 Ondansetron Odt [Zofran ODT] 4 mg PO Q8H PRN 09/08/24 09/08/24 Allergies Allergy/AdvReac Type Severity Reaction Status Date / Time No Known Allergies Allergy Verified 09/08/24 17:32 Review of Systems ROS Other: All systems not noted in ROS Statement are negative. <Amna Baker - Last Filed: 09/08/24 15:54> ROS Other: All systems not noted in ROS Statement are negative. <Yareli Blanc - Last Filed: 09/08/24 18:44> ROS Statement: Those systems with pertinent positive or pertinent negative responses have been documented in the HPI. Past Medical History Past Medical History: No Reported History History of Any Multi-Drug Resistant Organisms: None Reported Past Surgical History: No Surgical Hx Reported Past Anesthesia/Blood Transfusion Reactions: No Reported Reaction Past Psychological History: Anxiety Smoking Status: Vaper Past Alcohol Use History: None Reported Past Drug Use History: None Reported - Past Family History Father Family Medical History: Diabetes Mellitus, Hypertension <Amna Baker - Last Filed: 09/08/24 15:54> General Exam Limitations: no limitations General appearance: alert, in no apparent distress Respiratory exam: Present: normal lung sounds bilaterally. Absent: respiratory distress, wheezes, rales, rhonchi, stridor Cardiovascular Exam: Present: regular rate, normal rhythm, normal heart sounds. Absent: systolic murmur, diastolic murmur, rubs, gallop, clicks GI/Abdominal exam: Present: soft, tenderness (RUQ minimal), normal bowel sounds Neurological exam: Present: alert, oriented X3, CN II-XII intact Skin exam: Present: warm, dry, intact, normal color. Absent: rash <Amna Baker - Last Filed: 09/08/24 15:54> Course Vital Signs 09/08/24 09/08/24 09/08/24 14:34 15:18 17:17 Temperature 98.1 F Pulse Rate 57 L 81 57 L Respiratory 16 18 16 Rate Blood Pressure 114/74 118/78 105/59 O2 Sat by Pulse 98 96 98 Oximetry 09/08/24 18:19 Temperature Pulse Rate 53 L Respiratory 18 Rate Blood Pressure 125/84 O2 Sat by Pulse 98 Oximetry Medical Decision Making - Lab Data Result diagrams: 09/08/24 15:13 09/08/24 15:13 <Amna Baker - Last Filed: 09/08/24 15:54> - Lab Data Result diagrams: 09/08/24 15:13 09/08/24 15:13 <Yareli Blanc - Last Filed: 09/08/24 18:44> - Medical Decision Making Was pt. sent in by a medical professional or institution (, PA, STOCK ANALYST, urgent care, hospital, or longterm...) When possible be specific @ -No Did you speak to anyone other than the patient for history (EMS, parent, family, police, friend...)? What history was obtained from this source @ -No Did you review nursing and triage notes (agree or disagree)? Why? @ -I reviewed and agree with nursing and triage notes Were old charts reviewed (outside hosp., previous admission, EMS record, old EKG, old radiological studies, urgent care reports/EKG's, longterm records)? Report findings @ -Gallbladder ultrasound obtained on 09-07-2024 showing cholelithiasis. Gallb ladder wall measuring 0.1 cm. Common bile duct measuring 0.5 cm no common bile duct stones or dilation. Laboratory studies obtained yesterday showing a total bilirubin of 1.4, AST 133, ALT 366, alk phos 265. Patient discharged with outpatient management. Differential Diagnosis (chest pain, altered mental status, abdominal pain women, abdominal pain men, vaginal bleeding, weakness, fever, dyspnea, syncope, headache, dizziness, GI bleed, back pain, seizure, CVA, palpatations, mental health, musculoskeletal)? @ -Differential Abdominal Pain Women: Appendicitis, Cholecystitis, diver ticulosis, ischemic bowel, pancreatitis, hepatitis, UTI, gastroenteritis, AAA, incarcerated hernia, bowel obstruction, constipation, inflammatory bowel, hepatitis, peptic ulcer disease, splenic infarction, perforated viscus, vulvitis, ovarian torsion, PID, kidney stone, placenta abruption, this is not meant to be an all-inclusive list EKG interpreted by me (3pts min.). @ -None done X-rays interpreted by me (1pt min.). @ -None done CT interpreted by me (1pt min.). @ -None done U/S interpreted by me (1pt. min.). @ -None done What testing was considered but not performed or refused? (CT, X-rays, U/S, labs)? Why? @ -Gallbladder ultrasound deferred as patient had scan completed yesterday. What meds were considered but not given or refused? Why? @ -None Did you discuss the management of the patient with other professionals (professionals i.e. , PA, STOCK ANALYST, lab, RT, psych nurse, social work professor, plasterer stucco, teacher, aboriginal home school liaison officer, piano case maker)? Give summary @ -No Was smoking cessation discussed for >3mins.? @ -No Was critical care preformed (if so, how long)? @ -No Were there social determinants of health that impacted care today? How? (Homelessness, low income, unemployed, alcoholism, drug addiction, transportation, low edu. Level, literacy, decrease access to med. care, snf, rehab)? @ -No Was there de-escalation of care discussed even if they declined (Discuss DNR or withdrawal of care, Hospice)? DNR status @ -No What co-morbidities impacted this encounter? (DM, HTN, Smoking, COPD, CAD, Cancer, CVA, ARF, Chemo, Hep., AIDS, mental health diagnosis, sleep apnea, morbid obesity)? @ -None Was patient admitted / discharged? Hospital course, mention meds given and route, prescriptions, significant lab abnormalities, going to OR and other pertinent info. @ -[24-year-old female presenting to the ER with a chief complaint of abdominal pain. History and physical exam completed. Vitals stable. Patient in no signs of acute distress nontoxic-appearing. Minimal right upper quadrant abdominal tenderness with normal bowel sounds. No rebound or guarding. Patient was seen here yesterday for similar complaint. Laboratory studies will be repeated. Gallbladder ultrasound deferred at this time as she had ultrasound completed yesterday. Patient received IV fluids, Toradol and Zofran in the ER. Patient signed out to Yareli Blanc PA-C at shift completion. (Amna Baker) Was pt. sent in by a medical professional or institution (KELLY Willett, STOCK ANALYST, urgent care, hospital, or longterm...) When possible be specific @ -No Did you speak to anyone other than the patient for history (EMS, parent, family, police, friend...)? What history was obtained from this source @ -No Did you review nursing and triage notes (agree or disagree)? Why? @ -I reviewed and agree with nursing and triage notes Were old charts reviewed (outside hosp., previous admission, EMS record, old EKG, old radiological studies, urgent care reports/EKG's, longterm records)? Report findings @ -Gallbladder ultrasound obtained on 09-07-2024 revealed cholelithiasis, revie wed ER notes and lab work from yesterday Differential Diagnosis (chest pain, altered mental status, abdominal pain women, abdominal pain men, vaginal bleeding, weakness, fever, dyspnea, syncope, heada tianna, dizziness, GI bleed, back pain, seizure, CVA, palpatations, mental health, musculoskeletal)? @ -Differential Abdominal Pain Women: Appendicitis, Cholecystitis, diverticulosis, ischemic bowel, pancreatitis, hepatitis, UTI, gastroenteritis, AAA, incarcerated hernia, bowel obstruction, constipation, inflammatory bowel, hepatitis, peptic ulcer disease, splenic infarction, perforated viscus, vulvitis, ovarian torsion, PID, kidney stone, placenta abruption, this is not meant to be an all-inclusive list EKG interpreted by me (3pts min.). @ -None X-rays interpreted by me (1pt min.). @ -None done CT interpreted by me (1pt min.). @ -None done U/S interpreted by me (1pt. min.). @ -None done What testing was considered but not performed or refused? (CT, X-rays, U/S, labs)? Why? @ -None What meds were considered but not given or refused? Why? @ -None Did you discuss the management of the patient with other professionals (professionals i.e. , PA, STOCK ANALYST, lab, RT, psych nurse, social work professor, plasterer stucco, teacher, aboriginal home school liaison officer, piano case maker)? Give summary @ -I spoke with Dr. Girard who accepts admission for biliary colic Was smoking cessation discussed for >3mins.? @ -No Was critical care preformed (if so, how long)? @ -No Were there social determinants of health that impacted care today? How? (Homelessness, low income, unemployed, alcoholism, drug addiction, transportation, low edu. Level, literacy, decrease access to med. care, snf, rehab)? @ -No Was there de-escalation of care discussed even if they declined (Discuss DNR or withdrawal of care, Hospice)? DNR status @ -No What co-morbidities impacted this encounter? (DM, HTN, Smoking, COPD, CAD, Cancer, CVA, ARF, Chemo, Hep., AIDS, mental health diagnosis, sleep apnea, morbid obesity)? @ -None Was patient admitted / discharged? Hospital course, mention meds given and route, prescriptions, significant lab abnormalities, going to OR and other pertinent info. @ -Admitted. This is a 24-year-old female presenting with epigastric pain x 3 months. Patient reports epigastric pain has been progressively worsening, describes a tight pain in the epigastric area about 20 minutes postprandial. Patient was here yesterday for same complaint where she was diagnosed with cholelithiasis via ultrasound and discharged with surgical follow-up. Patient reports she is unable to eat due to severe pain with food. Vital signs are within acceptable limits. Abdomen is soft and nontender. Patient was provided with analgesics and antiemetics. Lab work including CBC, CMP, lactic acid remarkable for elevated LFTs and elevated alk phos. Urinalysis reveals blood and bacteria however the patient reports she is 14 days postprandial and c ontinues to have vaginal spotting. Denies urinary symptoms. I spoke with Dr. Girard who accepts admission for biliary colic. Case was discussed with my ED attending Dr. Méndez. Undiagnosed new problem with uncertain prognosis? @ -No Drug Therapy requiring intensive monitoring for toxicity (Heparin, Nitro, Insulin, Cardizem)? @ -No Were any procedures done? @ -No Diagnosis/symptom? @ -Biliary colic Acute, or Chronic, or Acute on Chronic? @ -Acute Uncomplicated (without systemic symptoms) or Complicated (systemic symptoms)? @ -Complicated Side effects of treatment? @ -No Exacerbation, Progression, or Severe Exacerbation? @ -No Poses a threat to life or bodily function? How? (Chest pain, [place], NH, pneumonia, PE, COPD, DKA, ARF, appy, cholecystitis, CVA, Diverticulitis, Homicidal, Suicidal, threat to staff... and all critical care pts) @ -Possibly (Yareli Blanc) - Lab Data Lab Results 09/08/24 09/08/24 09/08/24 Range/Units 15:13 15:13 15:13 WBC 4.7 (3.8-10.6) k/uL RBC 4.67 (3.80-5.40) m/uL Hgb 13.8 (11.4-16.0) gm/dL Hct 41.1 (34.0-46.0) % MCV 88.1 (80.0-100.0) fL MCH 29.6 (25.0-35.0) pg MCHC 33.6 (31.0-37.0) g/dL RDW 13.5 (11.5-15.5) % Plt Count 177 (150-450) k/uL MPV 8.2 Neutrophils % 53 % Lymphocytes % 35 % Monocytes % 4 % Eosinophils % 5 % Basophils % 1 % Neutrophils # 2.5 (1.3-7.7) k/uL Lymphocytes # 1.7 (1.0-4.8) k/uL Monocytes # 0.2 (0-1.0) k/uL Eosinophils # 0.3 (0-0.7) k/uL Basophils # 0.0 (0-0.2) k/uL Sodium 137 (137-145) mmol/L Potassium 4.0 (3.5-5.1) mmol/L Chloride 106 (98-107) mmol/L Carbon Dioxide 25 (22-30) mmol/L Anion Gap 6 mmol/L BUN 10 (7-17) mg/dL Creatinine 0.78 (0.52-1.04) mg/dL Est GFR (CKD-EPI)AfAm >90 (>60 ml/min/1.73 sqM) Est GFR (CKD-EPI)NonAf >90 (>60 ml/min/1.73 sqM) Glucose 86 (74-99) mg/dL Plasma Lactic Acid Yoni (0.7-2.0) mmol/L Calcium 8.7 (8.4-10.2) mg/dL Total Bilirubin 0.6 (0.2-1.3) mg/dL AST 163 H (14-36) U/L ALT 307 H (4-34) U/L Alkaline Phosphatase 198 H (38-126) U/L Total Protein 6.7 (6.3-8.2) g/dL Albumin 4.2 (3.5-5.0) g/dL Lipase (23-300) U/L Urine Color Light Yellow Urine Appearance Cloudy H (Clear) Urine pH 6.5 (5.0-8.0) Ur Specific Mineral 1.012 (1.001-1.035) Urine Protein Trace H (Negative) Urine Glucose (UA) Negative (Negative) Urine Ketones Negative (Negative) Urine Blood Large H (Negative) Urine Nitrite Negative (Negative) Urine Bilirubin Negative (Negative) Urine Urobilinogen <2.0 (<2.0) mg/dL Ur Leukocyte Esterase Large H (Negative) Urine RBC 153 H (0-5) /hpf Urine WBC 102 H (0-5) /hpf Ur Squamous Epith Cells 1 (0-4) /hpf Urine Bacteria Rare H (None) /hpf Urine Mucus Rare H (None) /hpf Urine HCG, Qual (Not Detectd) 09/08/24 09/08/24 09/08/24 Range/Units 15:13 15:13 17:39 WBC (3.8-10.6) k/uL RBC (3.80-5.40) m/uL Hgb (11.4-16.0) gm/dL Hct (34.0-46.0) % MCV (80.0-100.0) fL MCH (25.0-35.0) pg MCHC (31.0-37.0) g/dL RDW (11.5-15.5) % Plt Count (150-450) k/uL MPV Neutrophils % % Lymphocytes % % Monocytes % % Eosinophils % % Basophils % % Neutrophils # (1.3-7.7) k/uL Lymphocytes # (1.0-4.8) k/uL Monocytes # (0-1.0) k/uL Eosinophils # (0-0.7) k/uL Basophils # (0-0.2) k/uL Sodium (137-145) mmol/L Potassium (3.5-5.1) mmol/L Chloride (98-107) mmol/L Carbon Dioxide (22-30) mmol/L Anion Gap mmol/L BUN (7-17) mg/dL Creatinine (0.52-1.04) mg/dL Est GFR (CKD-EPI)AfAm (>60 ml/min/1.73 sqM) Est GFR (CKD-EPI)NonAf (>60 ml/min/1.73 sqM) Glucose (74-99) mg/dL Plasma Lactic Acid Yoni <0.5 L (0.7-2.0) mmol/L Calcium (8.4-10.2) mg/dL Total Bilirubin (0.2-1.3) mg/dL AST (14-36) U/L ALT (4-34) U/L Alkaline Phosphatase (38-126) U/L Total Protein (6.3-8.2) g/dL Albumin (3.5-5.0) g/dL Lipase 48 (23-300) U/L Urine Color Urine Appearance (Clear) Urine pH (5.0-8.0) Ur Specific Mineral (1.001-1.035) Urine Protein (Negative) Urine Glucose (UA) (Negative) Urine Ketones (Negative) Urine Blood (Negative) Urine Nitrite (Negative) Urine Bilirubin (Negative) Urine Urobilinogen (<2.0) mg/dL Ur Leukocyte Esterase (Negative) Urine RBC (0-5) /hpf Urine WBC (0-5) /hpf Ur Squamous Epith Cells (0-4) /hpf Urine Bacteria (None) /hpf Urine Mucus (None) /hpf Urine HCG, Qual Not Detected (Not Detectd) Disposition <Stariha,Amna - Last Filed: 09/08/24 15:54> Time of Disposition: 17:57 <Yareli Blanc - Last Filed: 09/08/24 18:44> Clinical Impression: Biliary colic Disposition: ADMITTED IP TO THIS HOSP Referrals: Hans Arevalo Jr, DO [Primary Care Provider] - 1-2 days
[2024-09-08] MEDS: SODIUM CHLORIDE 0.9% 1,000 ML IV STA (15:14)
[2024-09-08] MEDS: KETOROLAC 15 MG/ML 1 ML VIAL IVP STA (15:15)
[2024-09-08] MEDS: ONDANSETRON 4 MG/2 ML VIAL IVP STA (15:16)
[2024-09-08 15:25] LABS: Basophils % (A) 1 %; Eosinophils # (A) 0.3 k/uL (0-0.7); Eosinophils % (A) 5 %; HCT 41.1 % (34.0-46.0); HGB 13.8 gm/dL (11.4-16.0); Lymphocytes # (A) 1.7 k/uL (1.0-4.8); Lymphocytes % (A) 35 %; MCH 29.6 pg (25.0-35.0); MCHC 33.6 g/dL (31.0-37.0); MCV 88.1 fL (80.0-100.0); Mean Platelet Volume 8.2; Monocytes # (A) 0.2 k/uL (0-1.0); Monocytes % (A) 4 %; Neutrophils # (A) 2.5 k/uL (1.3-7.7); Neutrophils % (A) 53 %; Platelet Count 177 k/uL (150-450); RBC 4.67 m/uL (3.80-5.40); RDW 13.5 % (11.5-15.5); WBC 4.7 k/uL (3.8-10.6)
[2024-09-08 15:27] LABS: ALT 307 U/L (4-34); AST 163 U/L (14-36); African American GFR (CKD) >90 (>60 ml/min/1.73 sqM); Albumin 4.2 g/dL (3.5-5.0); Alkaline Phosphatase 198 U/L (38-126); Anion Gap 6 mmol/L; Blood Urea Nitrogen 10 mg/dL (7-17); Calcium 8.7 mg/dL (8.4-10.2); Carbon Dioxide 25 mmol/L (22-30); Chloride 106 mmol/L (98-107); Glucose 86 mg/dL (74-99); Non-African American GFR(CKD) >90 (>60 ml/min/1.73 sqM); Sodium 137 mmol/L (137-145); Total Bilirubin 0.6 mg/dL (0.2-1.3); Total Protein 6.7 g/dL (6.3-8.2)
[2024-09-08 15:32] LABS: Appearance,Urine Cloudy (Clear); Bacteria,Urine Rare /hpf; Bilirubin,Urine Negative (Negative); Blood,Urine Large (Negative); Color,Urine Light Yellow; Glucose,Urine (UA) Negative (Negative); Ketones,Urine Negative (Negative); Leukocyte Esterase,Urine Large (Negative); Mucus,Urine Rare /hpf; Nitrite,Urine Negative (Negative); PH, Urine 6.5 (5.0-8.0); Protein,Urine Trace (Negative); RBC,Urine 153 /hpf (0-5); Specific Gravity,Urine 1.012 (1.001-1.035); Squamous Epithelial Cell,Urine 1 /hpf (0-4); Urobilinogen,Urine <2.0 mg/dL (<2.0); WBC,Urine 102 /hpf (0-5)
[2024-09-08] MEDS ORDERED: MORPHINE SULFATE 4 MG/ML SYRINGE IV PRN (17:51)
[2024-09-08] MEDS ORDERED: NALOXONE 0.4 MG/ML 1 ML VIAL IV PRN (17:51)
[2024-09-08] MEDS: KETOROLAC 15 MG/ML 1 ML VIAL IVP PRN (21:27)
[2024-09-09 08:39] LABS: Basophils % (A) 1 %; Eosinophils # (A) 0.3 k/uL (0-0.7); Eosinophils % (A) 6 %; HCT 44.2 % (34.0-46.0); HGB 14.2 gm/dL (11.4-16.0); Lymphocytes # (A) 1.7 k/uL (1.0-4.8); Lymphocytes % (A) 38 %; MCH 28.9 pg (25.0-35.0); MCHC 32.1 g/dL (31.0-37.0); Mean Platelet Volume 7.9; Monocytes # (A) 0.2 k/uL (0-1.0); Monocytes % (A) 4 %; Neutrophils # (A) 2.3 k/uL (1.3-7.7); Neutrophils % (A) 51 %; Platelet Count 176 k/uL (150-450); RBC 4.91 m/uL (3.80-5.40); WBC 4.5 k/uL (3.8-10.6)
[2024-09-09 09:30] LABS: ALT 262 U/L (4-34); AST 114 U/L (14-36); African American GFR (CKD) >90 (>60 ml/min/1.73 sqM); Albumin/Globulin Ratio 1.7; Alkaline Phosphatase 242 U/L (38-126); Anion Gap 7 mmol/L; Blood Urea Nitrogen 10 mg/dL (7-17); Calcium 8.8 mg/dL (8.4-10.2); Carbon Dioxide 23 mmol/L (22-30); Chloride 108 mmol/L (98-107); Globulin 2.4 g/dL; Glucose 80 mg/dL (74-99); Non-African American GFR(CKD) >90 (>60 ml/min/1.73 sqM); Potassium 3.8 mmol/L (3.5-5.1); Sodium 138 mmol/L (137-145); Total Bilirubin 0.6 mg/dL (0.2-1.3); Total Protein 6.4 g/dL (6.3-8.2)
[2024-09-09] MEDS: SODIUM CHLORIDE 0.9% 1,000 ML IV SCH (10:36)
[2024-09-09] MEDS: IV FLUID CONTINUATION 1,000 ML IV ONE (10:54)
--- NOTE | 2024-09-09 11:16 | P.GSHP ---
History of Present Illness H&P Date: 09/09/24 Chief Complaint: Right upper quadrant pain This is a 24-year-old female presenting emergency room complaints of right upper quadrant pain. Patient is her definitive evidence of cholelithiasis. Patient has had symptomatic biliary colic off and on for the last 3 months. Past Medical History Past Medical History: No Reported History History of Any Multi-Drug Resistant Organisms: None Reported Past Surgical History: No Surgical Hx Reported Past Anesthesia/Blood Transfusion Reactions: No Reported Reaction Past Psychological History: Anxiety Smoking Status: Vaper Past Alcohol Use History: None Reported Past Drug Use History: None Reported - Past Family History Father Family Medical History: Diabetes Mellitus, Hypertension, Myocardial Infarction ([place]) Medications and Allergies Home Medications Medication Instructions Recorded Confirmed Type Omeprazole [PriLOSEC] 20 mg PO DAILY 09/08/24 09/09/24 History Ondansetron Odt [Zofran ODT] 4 mg PO Q8H PRN 09/08/24 09/09/24 History Allergies Allergy/AdvReac Type Severity Reaction Status Date / Time No Known Allergies Allergy Verified 09/09/24 11:07 Surgical - Exam Vital Signs Temp Pulse Resp BP Pulse Ox 98.1 F 57 L 16 114/74 98 09/08/24 14:34 09/08/24 14:34 09/08/24 14:34 09/08/24 14:34 09/08/24 14:34 - General well developed, well nourished, no distress - Eyes PERRL - ENT normal pinna - Neck no masses - Respiratory normal expansion - Cardiovascular Rhythm: regular - Abdomen Abdomen: soft, non tender Results - Labs 09/09/24 08:25 09/09/24 08:25 Abnormal Lab Results - Last 24 Hours (Table) 09/08/24 09/08/24 09/08/24 Range/Units 15:13 15:13 15:13 Chloride (98-107) mmol/L Plasma Lactic Acid Yoni <0.5 L (0.7-2.0) mmol/L AST 163 H (14-36) U/L ALT 307 H (4-34) U/L Alkaline Phosphatase 198 H (38-126) U/L Urine Appearance Cloudy H (Clear) Urine Protein Trace H (Negative) Urine Blood Large H (Negative) Ur Leukocyte Esterase Large H (Negative) Urine RBC 153 H (0-5) /hpf Urine WBC 102 H (0-5) /hpf Urine Bacteria Rare H (None) /hpf Urine Mucus Rare H (None) /hpf 09/09/24 Range/Units 08:25 Chloride 108 H (98-107) mmol/L Plasma Lactic Acid Yoni (0.7-2.0) mmol/L AST 114 H (14-36) U/L ALT 262 H (4-34) U/L Alkaline Phosphatase 242 H (38-126) U/L Urine Appearance (Clear) Urine Protein (Negative) Urine Blood (Negative) Ur Leukocyte Esterase (Negative) Urine RBC (0-5) /hpf Urine WBC (0-5) /hpf Urine Bacteria (None) /hpf Urine Mucus (None) /hpf Diabetes panel 09/08/24 09/09/24 Range/Units 15:13 08:25 Sodium 137 138 (137-145) mmol/L Potassium 4.0 3.8 (3.5-5.1) mmol/L Chloride 106 108 H (98-107) mmol/L Carbon Dioxide 25 23 (22-30) mmol/L BUN 10 10 (7-17) mg/dL Creatinine 0.78 0.76 (0.52-1.04) mg/dL Glucose 86 80 (74-99) mg/dL Calcium 8.7 8.8 (8.4-10.2) mg/dL AST 163 H 114 H (14-36) U/L ALT 307 H 262 H (4-34) U/L Alkaline Phosphatase 198 H 242 H (38-126) U/L Total Protein 6.7 6.4 (6.3-8.2) g/dL Albumin 4.2 4.0 (3.5-5.0) g/dL Calcium panel 09/08/24 09/09/24 Range/Units 15:13 08:25 Calcium 8.7 8.8 (8.4-10.2) mg/dL Albumin 4.2 4.0 (3.5-5.0) g/dL Pituitary panel 09/08/24 09/09/24 Range/Units 15:13 08:25 Sodium 137 138 (137-145) mmol/L Potassium 4.0 3.8 (3.5-5.1) mmol/L Chloride 106 108 H (98-107) mmol/L Carbon Dioxide 25 23 (22-30) mmol/L BUN 10 10 (7-17) mg/dL Creatinine 0.78 0.76 (0.52-1.04) mg/dL Glucose 86 80 (74-99) mg/dL Calcium 8.7 8.8 (8.4-10.2) mg/dL Adrenal panel 09/08/24 09/09/24 Range/Units 15:13 08:25 Sodium 137 138 (137-145) mmol/L Potassium 4.0 3.8 (3.5-5.1) mmol/L Chloride 106 108 H (98-107) mmol/L Carbon Dioxide 25 23 (22-30) mmol/L BUN 10 10 (7-17) mg/dL Creatinine 0.78 0.76 (0.52-1.04) mg/dL Glucose 86 80 (74-99) mg/dL Calcium 8.7 8.8 (8.4-10.2) mg/dL Total Bilirubin 0.6 0.6 (0.2-1.3) mg/dL AST 163 H 114 H (14-36) U/L ALT 307 H 262 H (4-34) U/L Alkaline Phosphatase 198 H 242 H (38-126) U/L Total Protein 6.7 6.4 (6.3-8.2) g/dL Albumin 4.2 4.0 (3.5-5.0) g/dL - Imaging US - abdomen: report reviewed (Phthisis) Assessment and Plan Assessment: Symptomatic cholelithiasis, biliary colic. Patient will undergo laparoscopic cholecystectomy.
[2024-09-09] MEDS: FAMOTIDINE 20 MG/2 ML VIAL IV STA (11:25)
[2024-09-09] MEDS: DEXAMETHASONE SOD PHOSPHATE 4 MG/ML 1 ML VIAL IVP STA (11:26)
[2024-09-09] MEDS: ONDANSETRON 4 MG/2 ML VIAL IVP PRN (11:26)
[2024-09-09] MEDS: HEPARIN SODIUM,PORCINE 5,000 UNIT/ML 1 ML VIAL SQ STA (11:27)
[2024-09-09] MEDS ORDERED: LIDOCAINE 1% INJ 10MG/ML (20 ML MDV) ONE (11:30)
[2024-09-09] MEDS ORDERED: NEOSTIGMINE 1 MG/ML 10 ML VIAL ONE (11:30)
[2024-09-09] MEDS ORDERED: MIDAZOLAM 2 MG/2 ML VIAL ONE (11:30)
[2024-09-09] MEDS ORDERED: ROCURONIUM 10 MG/ML (5 ML VIAL) IV ONE (11:30)
[2024-09-09] MEDS ORDERED: fentaNYL (PF) 50 MCG/ML 2 ML AMP ONE (11:30)
[2024-09-09] MEDS ORDERED: GLYCOPYRROLATE 0.2 MG/ML 2 ML VIAL ONE (11:30)
[2024-09-09] MEDS ORDERED: SUCCINYLCHOLINE CHLORIDE 200 MG/10 ML VIAL IV ONE (11:30)
[2024-09-09] MEDS ORDERED: PROPOFOL 10 MG/ML 20 ML VIAL IV ONE (11:30)
[2024-09-09] MEDS: BUPIVACAINE (PF) 0.25% 30 ML VIAL SQ ONE (11:52)
--- NOTE | 2024-09-09 12:13 | P.OP ---
Date of Procedure: 09/09/24 Preoperative Diagnosis: Cholecystitis Postoperative Diagnosis: Cholecystitis Procedure(s) Performed: Laparoscopic cholecystectomy Anesthesia: LUISA Surgeon: Sinan Girard Estimated Blood Loss (ml): 5 Pathology: other (Gallbladder) Condition: stable Disposition: PACU Description of Procedure: The patient was placed on the operating table. The patient received a general endotracheal tube anesthesia. The patients abdomen was prepped and draped in the usual sterile fashion. Through an infraumbilical stab incision, the fascia of the anterior abdominal wall was grasped with a pair of Kochers and then the Veress needle was placed in the peritoneal cavity. Position of the Veress needle was confirmed with positive drop test. The abdomen was then insufflated. After adequate insufflation, the 10 mm trocar was placed in the peritoneal cavity. Following this the laparoscope was placed in the peritoneal cavity. The patient was placed in the head-up, right side up position and then a 5 mm trocar was placed in the right lateral and right subcostal position under direct visualization. A 8 mm trocar was placed in the epigastric position. The gallbladder was grasped in the fundus and infundibulum. Traction on the gallbladder was placed in the lateral and the cephalad positions. The triangle of Calot was visualized.. The cystic duct was bluntly dissected until the union of the cystic duct and common bile duct was seen. A critical view of safety was achieved. The cystic duct was then divided and sealed with the Harmonic scissors. A PDS Endoloop was then placed throughout the cystic duct stump. The cystic artery divided and sealed with the Harmonic scissors. The gallbladder was then removed from the liver bed using Harmonic scissors. The gallbladder was then extracted through the epigastric port site. Operative field was checked for any bleeding spots and Harmonic scissors was used to coagulate the liver bed. The abdomen was irrigated. The trocars were removed. The skin was closed using interrupted 3-0 Vicryl suture. Dermabond dressing were applied. The patient tolerated the procedure well.
[2024-09-09] MEDS: HYDROmorphone 0.5 MG/0.5 ML SYRINGE IVP STA (12:39)
[2024-09-09] MEDS: LACTATED RINGERS 1,000 ML IV ONE (12:45)
[2024-09-09] MEDS: HEPARIN SODIUM,PORCINE 5,000 UNIT/ML 1 ML VIAL SQ SCH (20:46)
[2024-09-09] MEDS: HYDROcodone/APAP 5-325MG 1 EACH TAB PO PRN (20:46)
[2024-09-10 08:47] VITALS: BP 112/63; PULSE 59; RESP 17; TEMP 98
[2024-09-10 09:03] LABS: ALT 179 U/L (8-44); AST 62 U/L (13-35); Albumin/Globulin Ratio 2.35 Ratio (1.60-3.17); Alkaline Phosphatase 217 U/L (41-126); BUN/Creat Ratio 11.57 Ratio (12.00-20.00); Blood Urea Nitrogen 8.1 mg/dL (9.0-27.0); Calcium 8.8 mg/dL (8.7-10.3); Carbon Dioxide 24.8 mmol/L (21.6-31.8); Chloride 104 mmol/L (96-109); Globulin 1.7 g/dL (1.6-3.3); Glucose 82 mg/dL (70-110); Potassium 3.7 mmol/L (3.5-5.5); Sodium 139 mmol/L (135-145); Total Bilirubin 0.3 mg/dL (0.3-1.2); Total Protein 5.7 g/dL (6.2-8.2)
--- NOTE | 2024-09-10 11:43 | P.DS ---
Providers Date of admission: 09/08/24 17:56 Expected date of discharge: 09/10/24 Attending physician: Sinan Girard Primary care physician: Hans Arevalo [facility] Course: Discharge diagnosis 1. Cholecystitis Hospital course This is a 24-year-old female who presented with right upper quadrant abdominal pain. She was found to have evidence of cholelithiasis. She has had symptomatic biliary colic off and on for the last 3 months. Patient is status post laparoscopic cholecystectomy. Patient tolerated surgery well. Her pain is controlled. She is tolerating diet. She is having flatus. She has been up and ambulating. She is afebrile. She is stable for discharge. Please refer to chart for any further details. Physician Billiard Player note has been reviewed by physician. Signing provider agrees with the documented findings, assessment, and plan of care. Patient Condition at Discharge: Stable Plan - Discharge Summary New Discharge Prescriptions: New Docusate [Colace] 100 mg PO BID #30 capsule Ibuprofen [Motrin] 600 mg PO Q8HR PRN #30 tab PRN Reason: Pain HYDROcodone/APAP 5-325MG [[place] 5-325] 1 tab PO Q6HR PRN 3 Days #12 tab PRN Reason: Pain Continue Ondansetron Odt [Zofran ODT] 4 mg PO Q8H PRN PRN Reason: Nausea Omeprazole [PriLOSEC] 20 mg PO DAILY Discharge Medication List Omeprazole [PriLOSEC] 20 mg PO DAILY 09/08/24 [History] Ondansetron Odt [Zofran ODT] 4 mg PO Q8H PRN 09/08/24 [History] Docusate [Colace] 100 mg PO BID #30 capsule 09/10/24 [Rx] HYDROcodone/APAP 5-325MG [[place] 5-325] 1 tab PO Q6HR PRN 3 Days #12 tab 09/10/24 [Rx] Ibuprofen [Motrin] 600 mg PO Q8HR PRN #30 tab 09/10/24 [Rx] Follow up Appointment(s)/Referral(s): Hans Arevalo Jr, DO [Primary Care Provider] - 1-2 days Sinan Girard MD [STAFF PHYSICIAN] - 09/16/24 2:15 pm Activity/Diet/Wound Care/Special Instructions: No driving while taking [place] No lifting over 10 pounds Shower daily. No soaking or tub baths for 2 weeks Very light activity until you are reevaluated at your follow up appointment with your surgeon Discharge Disposition: HOME SELF-CARE
== END 2024-09-10 11:03 | disposition home or self-care (01) ==
LOC: EC 14:30 → 4SSUR 17:56 → INTOOBSV 17:56 → 4SSUR 20:40
PROVIDERS: ADMIT Surgery; ATTEND Surgery
DX: R10.9 Unspecified abdominal pain (principal); K80.10 Calculus of gallbladder with chronic cholecystitis without obstruction; Z79.899 Other long term (current) drug therapy; F41.9 Anxiety disorder, unspecified
CPT/HCPCS: 47562; 96372; 99284; 36415; 81025 ×2; 88304; 80053 ×3; 83605; 83690; 85025 ×2; 81001; G0378 ×2; J2250; J0330; J1644; J1100; J2710; J0690; J2405 ×2; J2003; J3010; J3490; J1885 ×3; J2704; J1171; J0665; J1596